=== PATIENT | female | born 1950 | race Caucasian/White ===

== ENCOUNTER 2022-11-12 04:27 | Day surgery (SDC) | payer OTHER ==
[2022-11-11 11:12] VITALS: BMI 23.3
[2022-11-12 07:45] VITALS: TEMP 98.2
[2022-11-12 09:20] VITALS: BP 118/56; PULSE 68; RESP 14
== END 2022-11-12 09:40 | disposition home or self-care (01) ==
LOC: JASU-ENDO 04:27
PROVIDERS: ATTEND Internal Medicine Gastroenterology
PROC: 0DJD8ZZ Inspection of Lower Intestinal Tract, Via Natural or Artificial Opening Endoscopic (ICD-10-PCS; principal; 2022-11-12 08:30)
DX: Z12.11 Encounter for screening for malignant neoplasm of colon (principal); K64.8 Other hemorrhoids